=== PATIENT | female | born 1990 | race African-American/Black ===

== ENCOUNTER 2017-01-04 09:32 | Day surgery (SDC) | payer OTHER ==
[2017-01-03 09:11] VITALS: BMI 33.5
--- NOTE | 2017-01-04 10:14 | HP ---
Admitting History and Physical - Admission History of Present Illness: 26 yo with hx/o renan IUD in place and positive test She underwent an ultrasound which revealed an empty gestational sac She is presenting for a suction dilation and curettage History Source: Patient - Past Medical History Cardiovascular: No: HTN Pulmonary: Yes: Asthma (childhood) ...LMP: 11/28/16 ...: 1 ...Para: 0 Heme/Onc: No: Anemia - Past Surgical History Past Surgical History: Yes: None - Smoking History Smoking history: Never smoked Have you smoked in the past 12 months: No - Alcohol/Substance Use Hx Alcohol Use: Yes ("socially") - Social History History of Recent Travel: No Home Medications - Allergies Allergies/Adverse Reactions: Allergies Allergy/AdvReac Type Severity Reaction Status Date / Time No Known Allergies Allergy Verified 01/03/17 09:11 - Home Medications Home Medications: Ambulatory Orders Biotin 300 mcg PO DAILY 01/03/17 Family Disease History - Family Disease History Family History: Denies Review of Systems - Review of Systems Constitutional: reports: No Symptoms Cardiovascular: reports: No Symptoms Respiratory: reports: No Symptoms Gastrointestinal: reports: No Symptoms Genitourinary: reports: No Symptoms Musculoskeletal: reports: No Symptoms Neurological: reports: No Symptoms Endocrine: reports: No Symptoms Hematology/Lymphatic: reports: No Symptoms Psychiatric: reports: No Symptoms Physical Examination Constitutional: Yes: Well Nourished, No Distress, Calm Neck: Yes: Supple, Trachea Midline Cardiovascular: Yes: Regular Rate and Rhythm Respiratory: Yes: Regular, CTA Bilaterally Gastrointestinal: Yes: Normal Bowel Sounds, Soft Edema: No Neurological: Yes: Alert, Oriented Psychiatric: Yes: Alert, Oriented Imaging - Results Ultrasound: Image Reviewed Assessment/Plan 26 yo with missed , s/p IUD for suction dilation and curettage 1. Consents reviewed and signed 2. Preop labs reviewed 3. No preop antibiotics indicated 4. Will proceed to OR
[2017-01-04] MEDS ORDERED: IBUPROFEN 400 MG TABLET (FP) PO PRN (10:21)
[2017-01-04] MEDS ORDERED: oxyCODONE HCL 5 MG TABLET PO PRN (10:21)
[2017-01-04] MEDS ORDERED: ACETAMINOPHEN 325 MG TABLET (FP) PO PRN (10:21)
[2017-01-04] MEDS ORDERED: ONDANSETRON 4 MG/2 ML VIAL IVPB PRN (10:21)
[2017-01-04 10:34] LABS: MCH 26.1 pg (25.7-33.7); MCHC 32.8 g/dl (32.0-36.0); MEAN CELL VOLUME 79.6 fl (80-96); MEAN PLT VOLUME 8.4 fl (7.5-11.1); PLATELET COUNT 258 K/MM3 (134-434); RDW 15.5 % (11.6-15.6)
[2017-01-04] MEDS ORDERED: ceFAZolin SODIUM 1 GM VIAL ONE (13:29)
[2017-01-04] MEDS ORDERED: PROPOFOL 20 ML ONE ×4 (13:29→13:57)
[2017-01-04] MEDS ORDERED: SUCCINYLCHOLINE CHLORIDE 200 MG/10 ML VIAL ONE (13:30)
[2017-01-04] MEDS ORDERED: MIDAZOLAM HCL 2 MG/2 ML SINGLE DOSE VIAL ONE (13:30)
[2017-01-04] MEDS ORDERED: ROCURONIUM BROMIDE 50 MG/5 ML VIAL ONE (13:30)
[2017-01-04] MEDS ORDERED: NEOSTIGMINE METHYLSULFATE 0.5 MG/ML - 10 ML MDV ONE ×2 (13:56→14:35)
[2017-01-04] MEDS ORDERED: GLYCOPYRROLATE 0.2 MG/1 ML VIAL ONE (13:56)
--- NOTE | 2017-01-04 14:37 | OP ---
Operative Note - Note: Operative Date: 01/04/17 Pre-Operative Diagnosis: missed 7 weeks Operation: suction dilation and curettage Findings: uterus with empty gestational sac Post-Operative Diagnosis: Same as Pre-op Surgeon: Karla Arias Anesthesiologist/TERMITE CONTROL REPRESENTATIVE: Landy Daniels Anesthesia: General Estimated Blood Loss (mls): 20 Drains, Volume Out (mls): 50 (urine) Fluid Volume Replaced (mls): 500 Operative Report Dictated: Yes
--- NOTE | 2017-01-04 14:59 | OP ---
DATE OF OPERATION: 01/04/2017 ATTENDING PHYSICIAN: Karla Arias MD PREOPERATIVE DIAGNOSIS: Missed at 7 weeks. POSTOPERATIVE DIAGNOSIS: Missed at 7 weeks. PROCEDURE PERFORMED: Suction dilation and curettage. ANESTHESIA: Dr. Cindy Torres. FINDINGS: A 7-week size gestational sac with no pole noted. INDICATIONS: The patient is a 26-year-old 1 para 0 with history of retained IUD with positive test. She underwent ultrasound which showed an empty gestational sac measuring 7 weeks. She was counseled regarding risks and benefits and she opted for surgical management. She was counseled about risks, benefits and alteratives as well as complications of the procedure, including infection, bleeding, damage to surrounding organs such as bowel, bladder and uterine perforation. She expressed understanding. PROCEDURE IN DETAIL: She was brought to the operating room. When anesthesia was found to be adequate the patient was prepped and draped in the usual sterile fashion. She was placed in the dorsal lithotomy position using Kristal stirrups. A weighted speculum was placed in the posterior portion of the patient's vagina and anterior lip of the cervix was grasped using a an Allis clamp. The cervix was gently dilated to accommodate a size 7 curved suction curette. The curette was placed under ultrasound guidance and then suction was performed. Suction was initiated to accommodate 6 cmHg/60 mmHg. Approximately 3 passes were performed with good tissue removed. Ultrasound performed afterward revealed a thin endometrial stripe. Gentle sharp curetting was then performed. A mild amount of bleeding was noted. Gentle uterine massage assisted in contraction of the uterus. Methergine was given IM at the end of the procedure. All instruments were removed from the patient's vagina. The patient tolerated the procedure well. Estimated blood loss was 20 mL. the patient was transferred to the recovery room in stable condition. Shae [id number]
[2017-01-04 15:27] VITALS: TEMP 98.2
[2017-01-04 17:29] VITALS: BP 137/62; PULSE 83
--- NOTE | 2017-01-06 13:32 | PATH ---
Surgical Pathology Report Patient Name: MARGARITA THOMAS [facility]. Rec. #: [id number] /Age/Gender: 1990 (Age: 26) / F Account: [id number] Location: [facility] SURGICAL Taken: 01/04/2017 Received: 01/05/2017 Reported: 01/06/2017 Physicians: Karla Arias Specimen(s) Received PRODUCTS OF CONCEPTION Clinical History Missed Final Diagnosis PRODUCTS OF CONCEPTION: NO SOMATIC TISSUE IDENTIFIED. CHORIONIC VILLUS TISSUE PRESENT. FRAGMENTS OF DECIDUA. Electronically Signed Adolfo Chandler M.D. Gross Description Received in formalin labeled "products of conception" is a 12.0 x 8.5 x 1.0 cm aggregate of red-brown soft tissue fragments. Villous tissue is identified. No definite somatic tissue is identified. A Cad Drafter portion is submitted in one cassette. /01/05/201701/05/2017
== END 2017-01-04 17:00 | disposition home or self-care (01) ==
LOC: JASU-SURG 09:32
PROVIDERS: ATTEND Obstetrics & Gynecology
PROC: 10D17ZZ Extraction of Products of Conception, Retained, Via Natural or Artificial Opening (ICD-10-PCS; principal; 2017-01-04 11:00)
DX: O02.1 Missed abortion (principal)
CPT/HCPCS: 36415; 85027; 86850; 86900; 86901; 88305-TC; 94760